=== PATIENT | male | born 1945 | race Caucasian/White ===

== ENCOUNTER → 2020-02-20 | Outpatient (CLI) | payer MEDICARE, OTHER ==
[~2020-02-20] VITALS: Ht 177 cm; Wt 92.0 kg
[~2020-02-20] MED LIST: AMLO10TA7 PO; BISA5TAB8 PO; DONE10TA41 PO; DULO20CA19 PO; FINA5TAB6 PO; FLUO15CR2 TP; LISI10TA2 PO; MULT-1136 PO; NAPR-1070 PO; NFIPRATRNS NS; OMEP40CA27 PO; ROSU20TA32 PO; TMSL.4C PO
[2020-02-20 08:39] VITALS: BP 126/67
[2020-02-20 09:13] LABS: BASOPHILS % (AUTO) 0 % (0-10); EOSINOPHILS # (AUTO) 0.1 10^3/uL (0.0-0.3); EOSINOPHILS % (AUTO) 1 % (0-10); HEMATOCRIT 34 % (40-54); HEMOGLOBIN 11.1 g/dL (13.3-17.7); LYMPHOCYTES % (AUTO) 11 % (12-44); MEAN CORPUSCULAR HEMOGLOBIN 30 pg (25-34); MEAN CORPUSCULAR HGB CONC 33 g/dL (32-36); MEAN CORPUSCULAR VOLUME 92 fL (80-99); MEAN PLATELET VOLUME 10.5 fL (9.0-12.2); MONOCYTES # (AUTO) 0.8 10^3/uL (0.0-1.0); MONOCYTES % (AUTO) 9 % (0-12); NEUTROPHILS % (AUTO) 78 % (42-75); PLATELET COUNT 226 10^3/uL (130-400)
[2020-02-20 09:14] LABS: BILIRUBIN,URINE NEGATIVE (NEGATIVE); CLARITY,URINE CLEAR; COLOR,URINE YELLOW; GLUCOSE, URINE (UA) NEGATIVE (NEGATIVE); KETONES,URINE NEGATIVE (NEGATIVE); LEUKOCYTE ESTERASE ,URINE TRACE (NEGATIVE); NITRITE,URINE NEGATIVE (NEGATIVE); PH,URINE 6.5 (5-9); PROTEIN,URINE NEGATIVE (NEGATIVE)
[2020-02-20 09:22] LABS: BACTERIA,URINE NEGATIVE /HPF
[2020-02-20 09:32] LABS: BUN/CREATININE RATIO 30; CALCIUM 9.4 MG/DL (8.5-10.1); CARBON DIOXIDE 22 MMOL/L (21-32); CHLORIDE 108 MMOL/L (98-107); CREATININE SERUM 0.84 MG/DL (0.60-1.30); GFR ESTIMATED > 60; GLUCOSE 82 MG/DL (70-105); POTASSIUM 4.1 MMOL/L (3.6-5.0); SODIUM 139 MMOL/L (135-145)
--- NOTE | 2020-02-20 10:07 | Diagnostic Imaging Report ---
INDICATION: Bladder outlet obstruction. FINDINGS: No focal consolidation, failure, effusion, or pneumothorax. No free air beneath the diaphragms. IMPRESSION: No acute appearing abnormality. Dictated by: Dictated on workstation # [id number]
== END ==
LOC: PREOP 05:29
PROVIDERS: ATTEND Urology
DX: Z01.812 Encounter for preprocedural laboratory examination (principal); Z20.828 Contact with and (suspected) exposure to other viral communicable diseases
CPT/HCPCS: 36415; 71046; 80048; 81000; 85025; 86850; 86900; 86901; 87081; 87635

== ENCOUNTER 2022-11-19 06:53 | Outpatient (CLI) | payer OTHER ==
[~2022-11-19] VITALS: Ht 177.8 cm; Wt 105.0 kg
[~2022-11-19 06:53] MED LIST changes: +AMLO-251 PO; -AMLO10TA7 PO; +BISA5TAB20 PO; -BISA5TAB8 PO; +CIPR500S3 PO; -LISI10TA2 PO; +LISI10TA25 PO; -OMEP40CA27 PO; +OMEP40CA6 PO; -ROSU20TA32 PO; +ROSU20TA73 PO
[2022-11-19] MEDS ORDERED: ASPI-999 PO (14:43)
[2022-11-19] MEDS ORDERED: MELA1TAB15 PO (15:21)
[2022-11-19] MEDS ORDERED: OXYC1TAB11 PO (15:21)
[2022-11-19] MEDS ORDERED: BACL20TA PO (15:21)
[2022-11-19] MEDS ORDERED: ROPI0.253 PO (15:21)
== END 2022-11-19 15:22 ==
LOC: PREOP 06:53
PROVIDERS: ATTEND Orthopaedic Surgery
DX: Z01.818 Encounter for other preprocedural examination (principal)

== ENCOUNTER 2022-11-26 05:56 | Day surgery (SDC) | payer OTHER ==
--- NOTE | 2022-11-18 12:39 | HISTORY AND PHYSICAL ---
This will be for outpatient surgery on 11/26/2022 for right shoulder rotator cuff repair. HISTORY OF PRESENT ILLNESS: The patient is a 77-year-old right hand dominant gentleman with complaints of right shoulder pain and weakness. He underwent an MRI, which reveals a near full-thickness rotator cuff tear with a superior labral tear. In addition, he had an inferior glenoid fracture, which had healed radiographically. He has undergone treatment with injections, anti-inflammatories and therapy without relief. He reports anterior shoulder pain with weakness. He denies any instability. Due to functional impairment and failure to improve with conservative measures, the patient elected to proceed with surgical intervention. REVIEW OF SYSTEMS: No chest pain, no shortness of breath. No dysuria. PAST MEDICAL HISTORY: Depression, reflux, hyperlipidemia, hypertension, neck pain, sleep apnea, syncope, PTSD, sinus bradycardia, myocardial infarction. PAST SURGICAL HISTORY: 1. Right hand, left elbow, left total knee arthroplasty. 2. Herniorrhaphies. FAMILY HISTORY: None known. SOCIAL HISTORY: The patient denies alcohol or tobacco use. MEDICATIONS: GABAPENTIN, SULFA, AND IRON. PHYSICAL EXAMINATION: GENERAL: The patient is well-developed, well-nourished, in no acute distress. HEENT: Normocephalic, atraumatic. Pupils equal, round, reactive to light. Oropharynx is clear. NECK: Supple. No lymphadenopathy. LUNGS: Clear to auscultation bilaterally. HEART: Regular rate and rhythm. ABDOMEN: Soft, nontender, nondistended. EXTREMITIES: The right shoulder demonstrates a positive Speed's maneuver, positive Dunn's maneuver. No pain with apprehension, negative relocation maneuver. Active forward elevation is 160 degrees, internal rotation is to L3, external rotation 70 degrees. Slight weakness is noted with abduction and external rotation. IMPRESSION: Right shoulder SLAP tear with possible rotator cuff tear. PLAN: Right shoulder arthroscopy with biceps tenotomy, open rotator cuff repair. The risks, benefits, options, ramifications and recovery have been discussed at length with the patient. He understands and wishes to proceed. Job ID: [id number] DocumentID: [id number] Dictated Date: 11/18/2022 11:41:47 Barge Engineer Date: 11/18/2022 12:37:00 Dictated By: HATTIE VALDES MD
[~2022-11-26] VITALS: Ht 177.8 cm; Wt 105.0 kg
[2022-11-26] VITALS (10 sets, daily range): BP systolic 130–154; BP diastolic 62–75
[~2022-11-26 05:56] MED LIST changes: +ASPI-999 PO; +BACL20TA PO; +MELA1TAB15 PO; +OXYC1TAB11 PO; +ROPI0.253 PO
[2022-11-26] MEDS ORDERED: ceFAZolin INJECTION 1,000 MG in NS (IVPB) 50 ML 50 ML IV ONE (06:15)
[2022-11-26] MEDS: LACTATED RINGERS 1,000 ML IV PRN ×2 (06:43→09:12)
[2022-11-26] MEDS ORDERED: ONDANSETRON 4 MG/2 ML (SDV) Z0FRAN ONE (07:05)
[2022-11-26] MEDS ORDERED: MIDAZOLAM 2 MG/2 ML (VERSED) VIAL ONE (07:05)
[2022-11-26] MEDS ORDERED: LIDOCAINE PF 2% 5 ML (XYLOCAINE) VIAL ONE (07:05)
[2022-11-26] MEDS ORDERED: proPOfol 200 MG/20 ML (DIPRIVAN) VIAL IV ONE (07:05)
[2022-11-26] MEDS ORDERED: fentaNYL INJ 100 MCG/2 ML AMP ONE (07:05)
[2022-11-26] MEDS ORDERED: BUPIVACAINE 0.25% 30 ML VIAL ONE (07:08)
[2022-11-26] MEDS ORDERED: morphine PF (DURAMORPH) 10 MG/10 ML AMP ONE (07:08)
--- NOTE | 2022-11-26 07:36 | Progress Note-Pre Operative ---
Pre-Operative Progress Note Date of Available H&P: Nov 26, 2022 Date H&P Reviewed: Nov 26, 2022 Time H&P Reviewed: 07:11 Changes from last HP none Pre-Operative Diagnosis: right shoulder labral tear HATTIE VALDES MD Nov 26, 2022 07:35
--- NOTE | 2022-11-26 07:36 | Progress Note-Post Operative ---
Post-Operative Progess Note Surgeon (s)/Concessions Manager (s) Surgeon HATTIE VALDES MD Concessions Manager: none Pre-Operative Diagnosis right shoulder labral tear Post-Operative Diagnosis right shoulder SLAP and labral tears and chondromalacia of the glenoid Procedure & Operative Findings Date of Procedure 11/26/22 Procedure Performed/Findings right shoulder arthroscopic biceps tenotomy, labral debridement and chondroplasty of the glenoid Anesthesia Type GETA Estimated Blood Loss Estimated blood loss (mL): minimal Specimens/Packing Specimens Removed none Packing: none HATTIE VALDES MD Nov 26, 2022 07:36
[2022-11-26] MEDS ORDERED: BUPIVACAINE 0.25% 30 ML VIAL INJ ONE (08:20)
[2022-11-26] MEDS ORDERED: morphine PF (DURAMORPH) 10 MG/10 ML AMP INJ ONE (08:20)
[2022-11-26] MEDS ORDERED: NEOSTIGMINE (BLOXIVERZ ) 1 MG/1ML 10 ML VIAL ONE (08:32)
[2022-11-26] MEDS ORDERED: GLYCOPYRROLATE 0.2 MG/ML (ROBINUL) 2 ML VIAL ONE (08:32)
[2022-11-26] MEDS ORDERED: ROCURONIUM 50 MG/5 ML (ZEMURON) VIAL IV ONE (08:32)
--- NOTE | 2022-11-26 08:54 | Anesthesia-General Post-Op ---
General Patient Condition Mental Status/LOC: Same as Preop Cardiovascular: Satisfactory Nausea/Vomiting: Absent Respiratory: Satisfactory Pain: Controlled Complications: Absent Post Op Complications Complications None Follow Up Care/Instructions Patient Instructions None needed. Anesthesia/Patient Condition Patient Condition Patient is doing well, no complaints, stable vital signs, no apparent adverse anesthesia problems. No complications reported per nursing. ERICA CURRY CRNA Nov 26, 2022 08:54
[2022-11-26] MEDS ORDERED: oxyCODONE/APAP 5/325MG (PERCOCET 5) TABLET ONE (10:03)
[2022-11-26] MEDS ORDERED: oxyCODONE/APAP 5/325MG (PERCOCET 5) TABLET PO ONE (10:15)
--- NOTE | 2022-11-26 14:14 | OPERATIVE REPORT ---
DATE OF SERVICE: 11/26/2022 PREOPERATIVE DIAGNOSES: 1. Right shoulder SLAP tear. 2. Right shoulder labral tear. POSTOPERATIVE DIAGNOSES: 1. Right shoulder SLAP tear. 2. Right shoulder labral tear. 3. Right shoulder chondromalacia of the glenoid. PROCEDURES: 1. Right shoulder arthroscopic biceps tenotomy. 2. Right shoulder arthroscopic labral debridement. 3. Right shoulder arthroscopic chondroplasty of the glenoid. SURGEON: Adelso Valdes MD MAPPING SUPERVISOR: None. ANESTHESIA: General endotracheal by Audra Paige CRNA. ESTIMATED BLOOD LOSS: Minimal. DRAINS: None. COMPLICATIONS: None. POSTOPERATIVE PLAN: Sling wear for 4 weeks with progressive activities as symptoms allow. The patient was transported to the recovery room awake and in stable condition. STATEMENT OF MEDICAL NECESSITY: The patient is a 77-year-old gentleman with complaints of right shoulder pain following an injury in April. MRI was obtained, which revealed a healed bony Bankart lesion as well as a superior labral tear. He had had no feelings of instability since the time of his initial injury, but had continued anterior and superior shoulder pain. He has undergone treatment with injections and therapy without relief and due to functional impairment, the patient elected to proceed with surgical intervention. Examination under anesthesia revealed passive forward elevation 170 degrees, external rotation of 85 degrees and internal rotation of 70 degrees. Arthroscopic findings demonstrated diffuse grade III chondral loss over the central portion of the humeral head in a 30 x 30 area. The glenoid demonstrated grade III chondral flap centrally in a 20 x 20 area. There was a type 2 SLAP tear. The posterior labrum was demonstrated degenerative tearing from the 9 to 12 o'clock positions. In addition, there was no evidence of a bony Bankart lesion, although his anterior labrum was scarred to the glenoid neck far inferiorly. His rotator cuff was intact throughout. DESCRIPTION OF PROCEDURE: After risks and benefits of the procedure were discussed and questions were answered and informed consent was signed and placed on chart. The operative site was confirmed in the preoperative holding area initialed by surgeon. The patient was then transferred to the operating room and after adequate levels of general endotracheal anesthetic were obtained, a timeout was called, confirming the operative site. Examination under anesthesia was performed with the above findings noted. The right shoulder and upper extremity were prepped and draped in the usual sterile fashion. The shoulder joint was injected with 20 mL of fluid and a standard posterior portal was placed. An anterior portal was created in the interval between biceps, subscapularis and glenoid. The biceps anchor was released and the stump was debrided with a shaver. The posterior labral tear was debrided with a shaver back to a stable edge. Under visualization, there was no instability anteriorly of the shoulder noted. The unstable chondral flaps on the glenoid were debrided with a shaver back to a stable edge. Shoulder joint was copiously irrigated. The scope and instruments were removed. The portal sites were closed with 4-0 nylon in simple interrupted fashion. The shoulder joint was injected with Duramorph. Incisions were infiltrated with plain Marcaine. A soft dressing and sling were applied. The patient was transferred to the recovery room awake and in stable condition. Job ID: [id number] DocumentID: [id number] Dictated Date: 11/26/2022 09:02:46 Securities Attorney Date: 11/26/2022 14:13:00 Dictated By: ADELSO VALDES MD
== END 2022-11-26 10:35 ==
LOC: SDC 05:56
PROVIDERS: ATTEND Orthopaedic Surgery
DX: M24.111 Other articular cartilage disorders, right shoulder (principal); M94.211 Chondromalacia, right shoulder; G47.33 Obstructive sleep apnea (adult) (pediatric); K21.9 Gastro-esophageal reflux disease without esophagitis; Z87.891 Personal history of nicotine dependence; Z99.81 Dependence on supplemental oxygen
CPT/HCPCS: 87081